=== PATIENT | female | born 1950 | race Caucasian/White ===

== ENCOUNTER 2021-02-17 17:05 | Inpatient (IN) ==
[2021-02-17] MEDS ORDERED: ONDANSETRON 4 MG/2 ML VIAL IV PRN ×2 (17:23→21:37)
[2021-02-17] MEDS ORDERED: LACTATED RINGERS 1,000 ML IV ONE (17:23)
[2021-02-17] MEDS: HYDROmorphone 0.5 MG/0.5 ML SYRINGE IV PRN ×2 (17:44→18:19)
--- NOTE | 2021-02-17 18:08 | XRay Report ---
INDICATION: FALL TECHNIQUE: AP supine chest x-ray COMPARISON: None FINDINGS:Poor quality examination due to patient obesity and supine position Lungs:Lungs are negative. No focal pulmonary parenchymal infiltrate or mass Heart, vascular:No significant cardiomegaly. Pulmonary vascularity is normal. No pulmonary edema or pulmonary congestion Mediastinum, kymberly:No mediastinal widening. No hilar mass Pleura:No pleural fluid. No pleural-based mass or calcification Skeletal:Negative. IMPRESSION: 1. No acute or focal infiltrate 2. No interval change Interpreted and Authenticated by: Elvis Britt 02/17/21
--- NOTE | 2021-02-17 18:10 | XRay Report ---
INDICATION: FALL TECHNIQUE: AP pelvis. Crosstable lateral left hip COMPARISON: Previous examination dated 09/25/2005 FINDINGS: Intertrochanteric left hip fracture with displacement and varus angulation deformity Pelvis is negative. No fracture. No lytic lesion. Sacrum is not well visualized. IMPRESSION: Displaced and angulated left intertrochanteric hip fracture Interpreted and Authenticated by: Elvis Britt 02/17/21
[2021-02-17 18:16] LABS: Basophils # (Auto) 0.02 K/mcL (0.00-0.20); Basophils % (Auto) 0.2 % (0.0-2.0); Eosinophils # (Auto) 0.01 K/mcL (0.00-0.70); Eosinophils % (Auto) 0.1 % (0.0-7.0); Hematocrit 43.8 % (36.0-48.0); Hemoglobin 14.6 g/dL (12.0-15.0); Lymphocytes # (Auto) 0.67 K/mcL (1.50-4.80); Lymphocytes % (Auto) 7.2 % (15.0-49.0); Mean Cell Volume 91.6 fL (80.0-100.0); Mean Corpuscular HGB Conc 33.3 g/dL (31.0-36.0); Mean Platelet Volume 10.3 fL (7.4-10.4); Monocytes # (Auto) 0.51 K/mcL (0.10-0.90); Monocytes % (Auto) 5.5 % (1.0-12.0); Platelet Count 244 K/mcL (140-440); RBC 4.78 M/mcL (4.00-5.20); Red Cell Distribution Width 13.3 % (11.5-14.5); WBC 9.3 K/mcL (4.5-11.0)
[2021-02-17 18:29] LABS: Partial Thromboplastin Time 23.3 sec (20.0-37.0)
[2021-02-17 18:30] LABS: INR 0.9 (0.9-1.1); Prothrombin Time 12.1 sec (11.9-14.5)
[2021-02-17 18:38] LABS: ALT/SGPT 17 U/L (<40); AST/SGOT 16 U/L (<32); Albumin 4.4 gm/dL (3.2-5.2); Albumin/Globulin Ratio 1.5 (1.0-2.3); Alkaline Phosphatase 98 U/L (39-117); Bilirubin,Total 0.4 mg/dL (0.1-1.0); Blood Urea Nitrogen 28 mg/dL (8-23); Calcium 10.4 mg/dL (8.6-10.4); Carbon Dioxide 24 mmol/L (22-30); Chloride 102 mmol/L (96-108); Glomerular Filtration Rate 35; Glucose 134 mg/dL (70-105)
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
[2021-02-17 19:19] LABS: Appearance,Urine Clear (Clear); Bilirubin,Urine Negative (Negative); Color,Urine Yellow; Culture Indicated,Urine No; Glucose,Urine (UA) Negative (Negative); Ketones,Urine Negative (Negative); Leukocyte Esterase,Urine Negative /ug (Negative); Mucus,Urine FEW /hpf; Nitrate,Urine Negative (Negative); Protein,Urine >=300 mg/dL mg/dL (Negative); Specific Gravity,Urine >= 1.030 (1.000-1.035); Urine Blood Trace-intact ery/mcL (Negative); Urine RBC 1 /hpf (0-3); Urine Squamous Epithelial Cell 3 /hpf (0-4); Urine WBC 1 /hpf (0-4); Urobilinogen,Urine Normal
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
[2021-02-17] MEDS ORDERED: ACETAMINOPHEN 325 MG TABLET PO PRN (21:37)
[2021-02-17] MEDS ORDERED: SENNOSIDES 1 TABLET PO PRN (21:37)
[2021-02-17] MEDS ORDERED: IPRATROPIUM/ALBUTEROL 3 ML AMPUL.NEB NEB PRN (21:37)
[2021-02-17] MEDS ORDERED: POTASSIUM CHLORIDE 20 MEQ TABLET PO PRN ×2 (21:37)
[2021-02-17] MEDS ORDERED: LABETALOL 5 MG/ML ML IV PRN (21:37)
[2021-02-17] MEDS ORDERED: POLYETHYLENE GLYCOL 3350 17 GM PACKET PO PRN (21:37)
[2021-02-17] MEDS ORDERED: MAGNESIUM SULFATE 2 GM/50 ML BAG IV PRN (21:37)
[2021-02-17] MEDS ORDERED: POTASSIUM CHLORIDE 40 MEQ in DEXTROSE 5% IN WATER 500 ML IV PRN (21:37)
[2021-02-17] MEDS ORDERED: HYDROcodone/APAP 5/325MG TABLET PO PRN (21:37)
[2021-02-17] MEDS ORDERED: NITROGLYCERIN 0.4 MG TAB.SUBL SL PRN (21:51)
[2021-02-17] MEDS: 0.9 % SODIUM CHLORIDE 10 ML SYRINGE IV SCH (21:55)
[2021-02-17] MEDS: morphine 4 MG/ML VIAL IV PRN (21:55)
[2021-02-17] MEDS: DOCUSATE SODIUM 100 MG CAPSULE PO SCH (22:39)
[2021-02-17] MEDS: ATORVASTATIN 40 MG TABLET PO SCH (22:50)
[2021-02-17] MEDS: FAMOTIDINE 20 MG TABLET PO SCH (22:50)
[2021-02-18] MEDS: morphine 4 MG/ML VIAL IV PRN ×2 (04:28→10:31)
[2021-02-18] MEDS: 0.9 % SODIUM CHLORIDE 10 ML SYRINGE IV SCH ×5 (05:57→23:48)
[2021-02-18 06:38] LABS: Basophils # (Auto) 0.03 K/mcL (0.00-0.20); Basophils % (Auto) 0.4 % (0.0-2.0); Eosinophils # (Auto) 0.05 K/mcL (0.00-0.70); Eosinophils % (Auto) 0.6 % (0.0-7.0); Hematocrit 40.3 % (36.0-48.0); Hemoglobin 12.8 g/dL (12.0-15.0); Lymphocytes # (Auto) 1.34 K/mcL (1.50-4.80); Mean Cell Volume 95.3 fL (80.0-100.0); Mean Corpuscular HGB Conc 31.8 g/dL (31.0-36.0); Mean Platelet Volume 10.2 fL (7.4-10.4); Monocytes # (Auto) 0.75 K/mcL (0.10-0.90); Monocytes % (Auto) 9.5 % (1.0-12.0); Neutrophils % (Auto) 72.5 % (38.0-78.0); Platelet Count 227 K/mcL (140-440); RBC 4.23 M/mcL (4.00-5.20); Red Cell Distribution Width 13.8 % (11.5-14.5); WBC 7.9 K/mcL (4.5-11.0)
[2021-02-18] MEDS ORDERED: 0.9 % SODIUM CHLORIDE 1,000 ML IV SCH (07:00)
[2021-02-18 07:07] LABS: ALT/SGPT 12 U/L (<40); AST/SGOT 13 U/L (<32); Albumin 3.6 gm/dL (3.2-5.2); Albumin/Globulin Ratio 1.3 (1.0-2.3); Alkaline Phosphatase 82 U/L (39-117); Bilirubin,Direct < 0.2 mg/dL (0-0.3); Bilirubin,Total 0.5 mg/dL (0.1-1.0); Blood Urea Nitrogen 30 mg/dL (8-23); Calcium 9.4 mg/dL (8.6-10.4); Carbon Dioxide 23 mmol/L (22-30); Chloride 101 mmol/L (96-108); Globulin 2.8 gm/dL (2.2-3.7); Glomerular Filtration Rate 28; Glucose 109 mg/dL (70-105); Lactate Dehydrogenase 179 U/L (135-225); Phosphorous 4.6 mg/dL (2.5-4.5); Triglycerides 197 mg/dL (<150); Uric Acid 6.2 mg/dL (2.5-8.0)
--- NOTE | 2021-02-18 08:02 | Consultation ---
DATE OF CONSULTATION: 02/18/2021 REQUESTING PHYSICIAN: Saurabh Veras MD CONSULTING PHYSICIAN: Allen Hdz MD REASON FOR CONSULTATION: Left hip fracture. HISTORY OF PRESENT ILLNESS: This is a 70-year-old female who lives by herself and yesterday morning fell on the hip. She was unable to bear weight and laid for approximately 12 hours before she was able to get contact to a neighbor to call emergency services. She denies pain anywhere else, denies loss of consciousness. The pain is made worse with movement, better with the immobility. PAST MEDICAL HISTORY: Positive for coronary artery disease, chronic kidney disease, COPD, depression, hypertension, hyperlipidemia, osteoporosis. PAST SURGICAL HISTORY: Finger amputation, arthroscopic knee surgery, hysterectomy, partial right kidney removal, oophorectomy, colonoscopy. MEDICATIONS: Aspirin 81 mg. Alendronate 70 mg every week. Atorvastatin 80 mg. Metoprolol 50 mg. Nitroglycerin as needed. Spironolactone 12.5 mg. Albuterol inhaler as needed. Tylenol with codeine. Fluticasone umeclidinium vilanterol or inhaler. ALLERGIES: No known drug allergies. SOCIAL HISTORY: She is . She is employed as a caregiver. Drinks alcohol a few times a month. FAMILY HISTORY: Positive for cervical cancer in her maternal grandmother, diabetes and colon cancer in an aunt, father of myocardial infarction, uncle with stomach cancer. REVIEW SYSTEMS: Ten-system review is negative except for as HPI. PHYSICAL EXAMINATION: VITAL SIGNS: Yesterday, temperature 97.2, pulse 87, respirations 18, blood pressure 166/72, pulse ox 91%. GENERAL: This morning, she appears her stated age, in no acute distress. She is awake and alert. EXTREMITIES: Bilateral upper extremities and right lower show no obvious evidence of injury and are normal to inspection, range of motion and stability and strength. Left lower extremity does reveal shortening with some rotation. She has limited movement secondary to pain. She is neurovascularly intact distally. HEART: Regular. LUNGS: Clear. DIAGNOSTIC IMAGING: X-rays reviewed, shows a base of neck left hip fracture. IMPRESSION: Left base of neck hip fracture in a 70-year-old female who does have some significant other medical comorbidities. PLAN: The patient has been admitted by the hospitalist and I believe she has been cleared for surgery; we will go ahead and proceed later today with open treatment and internal fixation of the left base of neck hip fracture with intramedullary cecilia fixation using a gamma nail. Risks of surgery discussed and include, but not limited to, bleeding; infection; injury to nerves, blood vessels, other surrounding structures, anesthetic risks; nonunion or malunion of the fracture; failure of hardware fixation; possibility of needing further surgery. She understands these risks and wished to proceed. [email or web address] Job ID: [id number] Doc ID: [id number] Allen Hdz MD
--- NOTE | 2021-02-18 08:09 | Internal Med Progress Note ---
SUBJECTIVE Subjective Patient information: Note initiated : 02/18/21 at 8:05 am Service Date, if different from initiated Date: [] Patient: Allyssa Aviles 70 y/o F admitted on 02/17/21 for fall. Chief Complaint: [] Interval history: History of present illness: Ms. Aviles is a 70 year old F Lives by herself got up the morning to get a drink she says she moved too fast and lost her balance falling her left hip with immediate pain. No loss of consciousness or head injury. Denies chest pain shortness of breath. She was laying for approximately 12 hours and was finally able to call a neighbor called EMS. In the ED she was evaluated found to have a left hip fracture. She was otherwise stable. CK was okay in the ED. Chronic kidney disease was baseline. Chest x-ray urinalysis and EKG unremarkable. 02/18 Slept okay. Pain controlled with pain medication. No overnight event or new complaints. Getting surgery today. Review of Systems: denies headache/fever/chills/nausea/vomiting/chest or abdominal pain/cough/dyspnea/diarrhea. Otherwise see above. Constitutional Vitals: Vital Signs Temp Pulse Resp BP Pulse Ox 98.0 F 78 20 95/62 95 02/18/21 07:28 02/18/21 07:28 02/18/21 07:28 02/18/21 07:28 02/18/21 07:28 Period Temp Pulse Resp BP Sys/Granados Pulse Ox Last 24 Hr 97.2 F-98.5 F 63-99 18-20 95-191/62-110 90-99 Intake and Output 02/17/21 02/18/21 02/18/21 21:59 05:59 13:59 Intake Total 1000 150 Output Total 1400 175 Balance -400 -25 Weight 77.111 kg Intake & Output: Intake & Output 02/17/21 02/18/21 02/18/21 21:59 05:59 13:59 Intake Total 1000 150 Output Total 1400 175 Balance -400 -25 Weight 77.111 kg Intake: IV 1000 Lactated Ringers 1,000 ml @ 1000 Wide Open IV .Q0M ONE Rx#: [id number] Oral 150 Output: Urine Catheter Amount 175 Void Amount 1400 Uretheral (Gonzalez) 1400 Other: Urine Appearance Clear Uretheral (Gonzalez) Clear Urine Color Bright Yellow Uretheral (Gonzalez) Bright Yellow Urine Odor Uretheral (Gonzalez) Normal Exam: General: Alert, Awake, No acute Distress, obese Eyes/N/T: EOMI, Head/Neck: neck supple, CV: RRR, No murmurs, Pulm: Clear b/l, no wheezing/rhonchi/rales Abd: soft, nontender, +BS x4 Ext: no clubbing/cyanosis/edema Neuro: Alert, no focal deficits, moves all extremities, Skin: warm/dry OBJ DATA Labs CBC & Chem 7: 02/18/21 05:43 02/18/21 05:43 Labs: Abnormal Lab Results 02/18/21 02/18/21 02/17/21 05:43 05:43 18:25 Neut % (Auto) Lymph % (Auto) Lymph # (Auto) 1.34 L Absolute Neutrophils BUN 30 H Creatinine 1.8 H Glucose 109 H Phosphorus 4.6 H Myoglobin NT-Pro-B Natriuret Pep Triglycerides 197 H Urine Protein >=300 mg/dl A Urine Occult Blood Trace-intact A Urine Mucus Few A 02/17/21 02/17/21 02/17/21 17:45 17:45 17:45 Neut % (Auto) 87.0 H Lymph % (Auto) 7.2 L Lymph # (Auto) 0.67 L Absolute Neutrophils 8.05 H BUN 28 H Creatinine 1.5 H Glucose 134 H Phosphorus Myoglobin 101 H NT-Pro-B Natriuret Pep 2305.0 H Triglycerides Urine Protein Urine Occult Blood Urine Mucus Meds: Medications Acetaminophen (Acetaminophen 325 Mg Tablet) 650 mg PO Q6HP PRN PRN Reason: PAIN/FEVER > 101 Hydrocodone Bitart/Acetaminophen (Hydrocodone/Apap 5/325mg Tablet) 1 tab PO Q4HP PRN PRN Reason: PAIN LEVEL 3-6 Albuterol/Ipratropium (Ipratropium/Albuterol 3 Ml Ampul.Neb) 3 ml NEB Q4HP PRN PRN Reason: Shortness Of Breath Atorvastatin Calcium (Atorvastatin 40 Mg Tablet) 80 mg PO QHS [facility] Last Admin: 02/17/21 22:50 Dose: 80 mg Documented by: Docusate Sodium (Docusate Sodium 100 Mg Capsule) 100 mg PO BID [facility] Last Admin: 02/17/21 22:39 Dose: Not Given Documented by: Famotidine (Famotidine 20 Mg Tablet) 20 mg PO BID [facility] Last Admin: 02/17/21 22:50 Dose: 20 mg Documented by: Potassium Chloride 40 meq/ (Dextrose) 520 mls @ 130 mls/hr IV UD PRN PRN Reason: Potassium < 3 Magnesium Sulfate (Magnesium Sulfate) 2 gm in 50 mls @ 50 mls/hr IV UD PRN PRN Reason: Magnesium </= 1.6 Sodium Chloride (Sodium Chloride 0.9%) 1,000 mls @ 75 mls/hr IV .[id number] [facility] Stop: 02/18/21 20:19 Last Admin: 02/18/21 05:25 Dose: 75 mls/hr Documented by: Labetalol HCl (Labetalol 5 Mg/Ml Ml) 0 mg IV Q2HP PRN PRN Reason: Hypertension Metoprolol Succinate (Metoprolol Succinate 25 Mg Tab.Xl.24h) 25 mg PO DAILY [facility] Morphine Sulfate (Morphine 4 Mg/Ml Vial) 0 mg IV Q3HP PRN PRN Reason: Pain Last Admin: 02/18/21 04:28 Dose: 2 mg Documented by: Nitroglycerin (Nitroglycerin 0.4 Mg Tab.Subl) 0.4 mg SL Q5M PRN PRN Reason: Chest Pain Ondansetron HCl (Ondansetron 4 Mg/2 Ml Vial) 4 mg IV Q4HP PRN PRN Reason: Nausea And Vomiting Fluticasone- Umeclidin-Vilanter [ Trelegy Ellipta] Inh 1 dose INH DAILY [facility] Polyethylene Glycol (Polyethylene Glycol 3350 17 Gm Packet) 17 gm PO DAILYP PRN PRN Reason: Constipation Potassium Chloride (Potassium Chloride 20 Meq Tablet) 40 meq PO UD PRN PRN Reason: Potssium is 3-3.5 Potassium Chloride (Potassium Chloride 20 Meq Tablet) 40 meq PO UD PRN PRN Reason: Potassium < 3 Scopolamine (Scopolamine 1 Patch Patch) 1 patch TOPICAL PREOP PRN PRN Reason: Nausea And Vomiting Stop: 02/18/21 23:59 Senna (Sennosides 1 Tablet) 2 tab PO DAILYP PRN PRN Reason: Constipation Sodium Chloride (0.9 % Sodium Chloride 10 Ml Syringe) 10 ml IV Q8 [facility] Last Admin: 02/18/21 05:57 Dose: 10 ml Documented by: Spironolactone (Spironolactone 25 Mg Tablet) 12.5 mg PO QDAY ANA LUISA A/P Narrative A/P Narrative: A: *Left hip fracture: *CAD w/stent: on asa/statin/BB *h/o diastolic CHF: on above + aldactone *CKD III-IV: cr @baseline upper 1's *HTN/HLD: *Obesity: *COPD(not on home O2) *Tobacco abuse: *ABIGAIL on cpap: P: -Dr. Hdz for surgery today -Patient at moderate perioperative risk per RCRI given age and comorbidities for intermediate risk surgery -cont BB/Statin, start ASA post-op -pain control -p/ot -monitor i/o, weights, fluid balance - -ppx: SCD, post-op per ortho DNR Time Spent With Patient Time: Total time spent is greater than 50% in coordination of care (as documented) at patient's floor/unit and/or counseling patient: QUALITY VTE Deep Vein Thrombosis/Pulmonary Embolism Present on Admission: No
[2021-02-18] MEDS ORDERED: METOPROLOL SUCCINATE 25 MG TAB.XL.24H PO SCH (09:00)
[2021-02-18] MEDS: METOPROLOL SUCCINATE 25 MG TAB.XL.24H PO SCH (10:34)
[2021-02-18] MEDS: SPIRONOLACTONE 25 MG TABLET PO SCH (10:34)
[2021-02-18] MEDS: FAMOTIDINE 20 MG TABLET PO SCH ×2 (10:34→23:20)
[2021-02-18] MEDS: DOCUSATE SODIUM 100 MG CAPSULE PO SCH ×2 (10:34→23:20)
[2021-02-18] MEDS ORDERED: ceFAZolin 2 GM in DEXTROSE 5% IN WATER 50 ML IV SCH ×2 (11:30→13:15)
[2021-02-18] MEDS ORDERED: SCOPOLAMINE 1 PATCH PATCH TOPICAL PRN (12:00)
[2021-02-18] MEDS ORDERED: TRANEXAMIC ACID 1,000 MG/10 ML VIAL IV ONE (12:13)
[2021-02-18] MEDS ORDERED: KETAMINE 100 MG/ML ML ONE (12:13)
[2021-02-18] MEDS ORDERED: DEXAMETHASONE 10 MG/ML VIAL ONE (12:13)
[2021-02-18] MEDS ORDERED: ROPIVACAINE HCL/PF 30 ML VIAL IJ ONE (12:13)
[2021-02-18] MEDS ORDERED: MIDAZOLAM 2 MG/2 ML VIAL ONE (12:13)
[2021-02-18] MEDS ORDERED: ONDANSETRON 4 MG/2 ML VIAL ONE (12:13)
[2021-02-18] MEDS ORDERED: MAGNESIUM SULFATE 2 GM/50 ML BAG IV ONE (12:13)
[2021-02-18] MEDS ORDERED: LIDOCAINE HCL/PF 100 MG/5 ML SYRINGE IV ONE (12:13)
[2021-02-18] MEDS ORDERED: GLYCOPYRROLATE 0.2 MG/ML VIAL IV ONE (12:13)
--- NOTE | 2021-02-18 12:48 | Internal Med Progress Note ---
SUBJECTIVE Subjective Patient information: Note initiated : 02/18/21 at 12:47 pm Service Date, if different from initiated Date: [] Patient: Allyssa Aviles 70 y/o F admitted on 02/17/21 for fall. Chief Complaint: [] Interval history: History of present illness: Ms. Aviles is a 70 year old F Lives by herself got up the morning to get a drink she says she moved too fast and lost her balance falling her left hip with immediate pain. No loss of consciousness or head injury. Denies chest pain shortness of breath. She was laying for approximately 12 hours and was finally able to call a neighbor called EMS. In the ED she was evaluated found to have a left hip fracture. She was otherwise stable. CK was okay in the ED. Chronic kidney disease was baseline. Chest x-ray urinalysis and EKG unremarkable. 02/18 Slept okay. Pain controlled with pain medication. No overnight event or new complaints. Getting surgery today. Physical exam Head: Atraumatic, normal inspection. Eyes: normal appearance, no scleral icterus. Neck: full ROM Respiratory: no respiratory distress. Cardiovascular: normal rate and rhythm, S1, S2. GI/Abdominal: soft, nontender, no guarding. Extremities: left hip surgical incision covered in clean bandage Neurological: CN II-XII intact, intact motor, intact sensation. Psychiatric: normal mood. Skin: warm, normal color Constitutional Vitals: Vital Signs Temp Pulse Resp BP Pulse Ox 98.0 F 78 20 95/62 95 02/18/21 07:28 02/18/21 07:28 02/18/21 07:28 02/18/21 07:28 02/18/21 07:28 Period Temp Pulse Resp BP Sys/Granados Pulse Ox Last 24 Hr 97.2 F-98.5 F 63-99 18-20 95-191/62-110 90-99 Intake and Output 02/17/21 02/18/21 02/18/21 21:59 05:59 13:59 Intake Total 1000 150 Output Total 1400 175 Balance -400 -25 Weight 77.111 kg Intake & Output: Intake & Output 02/17/21 02/18/21 02/18/21 21:59 05:59 13:59 Intake Total 1000 150 Output Total 1400 175 Balance -400 -25 Weight 77.111 kg Intake: IV 1000 Lactated Ringers 1,000 ml @ 1000 Wide Open IV .Q0M ONE Rx#: [id number] Oral 150 Output: Urine Catheter Amount 175 Void Amount 1400 Uretheral (Gonzalez) 1400 Other: Urine Appearance Clear Uretheral (Gonzalez) Clear Urine Color Bright Yellow Uretheral (Gonzalez) Bright Yellow Urine Odor Uretheral (Gonzalez) Normal Exam: General: Alert, Awake, No acute Distress, obese Eyes/N/T: EOMI, Head/Neck: neck supple, CV: RRR, No murmurs, Pulm: Clear b/l, no wheezing/rhonchi/rales Abd: soft, nontender, +BS x4 Ext: no clubbing/cyanosis/edema Neuro: Alert, no focal deficits, moves all extremities, Skin: warm/dry OBJ DATA Labs CBC & Chem 7: 02/19/21 05:50 02/19/21 05:50 Labs: Abnormal Lab Results 02/18/21 02/18/21 02/17/21 05:43 05:43 18:25 Neut % (Auto) Lymph % (Auto) Lymph # (Auto) 1.34 L Absolute Neutrophils BUN 30 H Creatinine 1.8 H Glucose 109 H Phosphorus 4.6 H Myoglobin NT-Pro-B Natriuret Pep Triglycerides 197 H Urine Protein >=300 mg/dl A Urine Occult Blood Trace-intact A Urine Mucus Few A 02/17/21 02/17/21 02/17/21 17:45 17:45 17:45 Neut % (Auto) 87.0 H Lymph % (Auto) 7.2 L Lymph # (Auto) 0.67 L Absolute Neutrophils 8.05 H BUN 28 H Creatinine 1.5 H Glucose 134 H Phosphorus Myoglobin 101 H NT-Pro-B Natriuret Pep 2305.0 H Triglycerides Urine Protein Urine Occult Blood Urine Mucus Meds: Medications Acetaminophen (Acetaminophen 325 Mg Tablet) 650 mg PO Q6HP PRN PRN Reason: PAIN/FEVER > 101 Hydrocodone Bitart/Acetaminophen (Hydrocodone/Apap 5/325mg Tablet) 1 tab PO Q4HP PRN PRN Reason: PAIN LEVEL 3-6 Albuterol/Ipratropium (Ipratropium/Albuterol 3 Ml Ampul.Neb) 3 ml NEB Q4HP PRN PRN Reason: Shortness Of Breath Atorvastatin Calcium (Atorvastatin 40 Mg Tablet) 80 mg PO QHS [facility] Last Admin: 02/17/21 22:50 Dose: 80 mg Documented by: Docusate Sodium (Docusate Sodium 100 Mg Capsule) 100 mg PO BID [facility] Last Admin: 02/18/21 10:34 Dose: Not Given Documented by: Famotidine (Famotidine 20 Mg Tablet) 20 mg PO BID [facility] Last Admin: 02/18/21 10:34 Dose: Not Given Documented by: Potassium Chloride 40 meq/ (Dextrose) 520 mls @ 130 mls/hr IV UD PRN PRN Reason: Potassium < 3 Magnesium Sulfate (Magnesium Sulfate) 2 gm in 50 mls @ 50 mls/hr IV UD PRN PRN Reason: Magnesium </= 1.6 Sodium Chloride (Sodium Chloride 0.9%) 1,000 mls @ 75 mls/hr IV .[id number] [facility] Stop: 02/18/21 20:19 Last Admin: 02/18/21 05:25 Dose: 75 mls/hr Documented by: Cefazolin Sodium 2 gm/ (Dextrose) 50 mls @ 100 mls/hr IV PREOP [facility]; Protocol Stop: 02/18/21 17:00 Last Admin: 02/18/21 11:55 Dose: 100 mls/hr Documented by: Labetalol HCl (Labetalol 5 Mg/Ml Ml) 0 mg IV Q2HP PRN PRN Reason: Hypertension Metoprolol Succinate (Metoprolol Succinate 25 Mg Tab.Xl.24h) 12.5 mg PO DAILY [facility] Last Admin: 02/18/21 10:34 Dose: Not Given Documented by: Morphine Sulfate (Morphine 4 Mg/Ml Vial) 0 mg IV Q3HP PRN PRN Reason: Pain Last Admin: 02/18/21 10:31 Dose: 2 mg Documented by: Nitroglycerin (Nitroglycerin 0.4 Mg Tab.Subl) 0.4 mg SL Q5M PRN PRN Reason: Chest Pain Ondansetron HCl (Ondansetron 4 Mg/2 Ml Vial) 4 mg IV Q4HP PRN PRN Reason: Nausea And Vomiting Fluticasone- Umeclidin-Vilanter [ Trelegy Ellipta] Inh 1 dose INH DAILY [facility] Polyethylene Glycol (Polyethylene Glycol 3350 17 Gm Packet) 17 gm PO DAILYP PRN PRN Reason: Constipation Potassium Chloride (Potassium Chloride 20 Meq Tablet) 40 meq PO UD PRN PRN Reason: Potssium is 3-3.5 Potassium Chloride (Potassium Chloride 20 Meq Tablet) 40 meq PO UD PRN PRN Reason: Potassium < 3 Scopolamine (Scopolamine 1 Patch Patch) 1 patch TOPICAL PREOP PRN PRN Reason: Nausea And Vomiting Stop: 02/18/21 23:59 Senna (Sennosides 1 Tablet) 2 tab PO DAILYP PRN PRN Reason: Constipation Sodium Chloride (0.9 % Sodium Chloride 10 Ml Syringe) 10 ml IV Q8 [facility] Last Admin: 02/18/21 05:57 Dose: 10 ml Documented by: Spironolactone (Spironolactone 25 Mg Tablet) 12.5 mg PO QDAY [facility] Last Admin: 02/18/21 10:34 Dose: Not Given Documented by: A/P Narrative A/P Narrative: A: *Left hip fracture s/p ORIF w/ gamma nail (02/18) *CAD w/stent: on asa/statin/BB *h/o diastolic CHF: stble *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
[2021-02-18] MEDS ORDERED: IPRATROPIUM/ALBUTEROL 3 ML AMPUL.NEB NEB PRN (13:04)
[2021-02-18] MEDS ORDERED: ONDANSETRON 4 MG/2 ML VIAL IV PRN (13:04)
[2021-02-18] MEDS ORDERED: MEPERIDINE 25 MG/ML VIAL IV PRN (13:04)
[2021-02-18] MEDS ORDERED: METHOCARBAMOL 1,000 MG/10 ML VIAL IV PRN (13:04)
[2021-02-18] MEDS ORDERED: fentaNYL 100 MCG/2 ML VIAL IV PRN (13:04)
[2021-02-18] MEDS ORDERED: ACETAMINOPHEN 1,000 MG/100 ML BAG IV ONE (13:04)
[2021-02-18] MEDS ORDERED: MAGNESIUM HYDROXIDE 30 ML ORAL.SUSP PO PRN (13:05)
[2021-02-18] MEDS ORDERED: BISACODYL 10 MG SUPP.RECT PR PRN (13:05)
[2021-02-18] MEDS ORDERED: POLYETHYLENE GLYCOL 3350 17 GM PACKET PO PRN (13:05)
[2021-02-18] MEDS ORDERED: FLEETS ADULT ENEMA PR PRN (13:05)
[2021-02-18] MEDS ORDERED: KETOROLAC 15 MG/ML VIAL IV PRN (13:05)
[2021-02-18] MEDS ORDERED: BENZOCAINE/MENTHOL 1 LOZENGE PO PRN (13:05)
--- NOTE | 2021-02-18 13:05 | Brief Operative Note ---
Brief Operative Note Date of procedure: 02/18/21 Pre-op diagnosis: Left base of neck intertrochanteric hip fracture Post-op diagnosis: same Procedure: Open treatment internal fixation of left base of neck intertrochanteric hip fracture w gamma nail Grafts/Implants: Yes (short roz gamma nail) Anesthesia: spinal and GLMA Findings: fractured base of neck Complications: none Surgeon: Allen Hdz Impregnator [employer] Products: Speedy Jameson Estimated blood loss (cc): 50 Specimens Removed/Pathology: none sent Condition: stable Disposition: PACU
[2021-02-18] MEDS ORDERED: LACTATED RINGERS 1,000 ML IV SCH (13:15)
--- NOTE | 2021-02-18 14:08 | Operative Note ---
DATE OF OPERATION: 02/18/2021 PREOPERATIVE DIAGNOSIS: Left hip base of neck intertrochanteric fracture. POSTOPERATIVE DIAGNOSIS: Left hip base of neck intertrochanteric fracture. PROCEDURE PERFORMED: Open treatment and internal fixation of the left base of neck intertrochanteric fracture with a short [place] gamma nail. SURGEON: Allen Hdz MD LABOR DELIVERY RN: Hiren Jameson PA-C. This providers expertise and technical skill were required throughout the case. The PA assisted with preoperative coordination, intraoperative retraction, wound closure, and dressing and splint application, as well as postoperative documentation and care coordination. ANESTHESIA: General. DRAINS: None. SPECIMENS: None. COMPLICATIONS: None. ESTIMATED BLOOD LOSS: 50 mL. POSTOPERATIVE CONDITION: Stable. INDICATIONS FOR SURGERY: This is a 70-year-old female who sustained a fall yesterday morning and was unable to bear weight. She laid on the ground for over 12 hours until she was found and was taken to the ER. X-rays showed a base of neck fracture. FINDINGS AT SURGERY: She did have the base of neck intertrochanteric fracture. Post implantation showed hardware in good position and fracture nearly anatomically aligned. PROCEDURE IN DETAIL: The patient had been seen preoperatively. Informed consent had been obtained after discussion of risks and benefits of surgery. Risks including, but not limited to, bleeding; infection; injury to nerves, blood vessels, other surrounding structures, anesthetic risks; nonunion or malunion of the fracture; failure of hardware fixation; possibility of needing further surgery. She understood these risks and wished to proceed. Correct operative site was marked in preoperative holding, and the patient was taken to the operating room and general anesthesia induced. She was carefully positioned on the fracture table and the left lower extremity was placed in some gentle traction with internal rotation. The right lower extremity was flexed and abducted out of the way and carefully padded. Fluoroscopy was brought in to verify good fracture alignment and then the left hip and leg were carefully prepped and draped in normal sterile fashion. Timeout was performed verifying patient name, operative site, and plan. Incision was made to proximal trochanter with a scalpel through skin and subcutaneous tissue. Hemostasis was obtained with Bovie cautery. We continued down through the thick subcutaneous fat layer with Bovie and then incised the IT band in line with the skin incision. Finger palpation was used to identify the tip of the trochanter and then a threaded guide pin was placed on the tip of the trochanter. We then advanced this down to the lesser trochanter. A lateral image was taken to verify we were down the canal. We then used the opening reamer with a tissue protector and then a short gamma nail was passed into the proximal femur. We impacted this down so the lag screw would be central and then a stab incision was made laterally and the sleeve was passed down to bone. We drilled the lateral cortex and then a threaded guide pin was passed up the femoral neck into the head. We placed the central on the AP view and then checked the lateral view. This was placed nicely central on this view as well, so we took the tip of the pin up close to the articular surface and then measured. We then reamed with the step reamer and then opened our lag screw. This was advanced over the pin until it was within a centimeter of the articular surface on both views. There was good lag screw purchase in this bone. We then placed our proximal interlock screws. This was advanced until it would no longer turn. We checked rotation of the lag screw and it was locked, so we backed the locking screw off 1/4 turn to allow sliding compression and then we went ahead and unscrewed the computer technologist off the lag screw. The guide pin was removed. We then placed our sleeve for our static distal interlocking screw. We made a stab incision and then placed this down onto bone. We drilled bicortically, checked with fluoroscopy and then measured our length and the appropriate length screw was placed, getting good bicortical purchase. We removed the jig and then final fluoro images were taken, both AP and lateral, proximal and distal. Once those were taken and saved, we irrigated copiously with IrriSept, after a minute we irrigated copiously with saline. Deep IT band was closed with a #1 Vicryl, 2-0 Monocryl was used for subcutaneous, jorge for skin. Xeroform and sterile dressing were applied. The patient was then awakened, extubated, and transferred to recovery in stable condition. BISI:yeyo Job ID: [id number] Doc ID: [id number] Allen Hdz MD
[2021-02-18] MEDS: 0.9 % SODIUM CHLORIDE 1,000 ML IV SCH ×2 (14:34→23:54)
--- NOTE | 2021-02-18 15:27 | XRay Report ---
INDICATION: gamma nail left. Left hip fracture TECHNIQUE: 0.5 minutes intraoperative fluoroscopy utilized by Dr. Hdz. Intraoperative spot films obtained. Reduction and internal fixation of left intertrochanteric hip fracture. Compression screw and nail with gamma nail configuration utilized. IMPRESSION: Intraoperative fluoroscopy and spot films. Open reduction and internal fixation of left intertrochanteric hip fracture Interpreted and Authenticated by: Elvis Britt 02/18/21
[2021-02-18] MEDS ORDERED: WARFARIN 5 MG TABLET PO ONE (16:00)
[2021-02-18] MEDS: ceFAZolin 1 GM VIAL IV SCH (18:58)
[2021-02-18] MEDS ORDERED: DOCUSATE SODIUM 100 MG CAPSULE PO SCH (21:00)
[2021-02-18] MEDS: oxyCODONE/APAP 5/325MG TABLET PO PRN (23:14)
[2021-02-18] MEDS: ATORVASTATIN 40 MG TABLET PO SCH (23:20)
[2021-02-18] MEDS: SENNOSIDES 1 TABLET PO SCH (23:21)
[2021-02-19] MEDS: ceFAZolin 1 GM VIAL IV SCH (03:58)
[2021-02-19] MEDS: 0.9 % SODIUM CHLORIDE 10 ML SYRINGE IV SCH ×3 (03:59→22:02)
[2021-02-19 07:20] LABS: Basophils # (Auto) 0.01 K/mcL (0.00-0.20); Basophils % (Auto) 0.1 % (0.0-2.0); Eosinophils # (Auto) 0 K/mcL (0.00-0.70); Eosinophils % (Auto) 0 % (0.0-7.0); Hematocrit 34.9 % (36.0-48.0); Hemoglobin 11.3 g/dL (12.0-15.0); Lymphocytes # (Auto) 0.59 K/mcL (1.50-4.80); Lymphocytes % (Auto) 6.8 % (15.0-49.0); Mean Cell Volume 95.1 fL (80.0-100.0); Mean Corpuscular HGB Conc 32.4 g/dL (31.0-36.0); Monocytes # (Auto) 0.63 K/mcL (0.10-0.90); Monocytes % (Auto) 7.2 % (1.0-12.0); Neutrophils % (Auto) 85.9 % (38.0-78.0); Platelet Count 201 K/mcL (140-440); RBC 3.67 M/mcL (4.00-5.20); Red Cell Distribution Width 13.5 % (11.5-14.5); WBC 8.7 K/mcL (4.5-11.0)
--- NOTE | 2021-02-19 07:28 | Orthopedic Progress Note ---
SUBJECTIVE Subjective Patient information: Note initiated : 02/19/21 at 7:24 am Service Date, if different from initiated Date: [] Patient: Allyssa Aviles 70 y/o F admitted on 02/17/21 for fall. Chief Complaint: Mild pain, difficulty walking. Constitutional Vitals: Vital Signs Temp Pulse Resp BP Pulse Ox 98.1 F 69 20 139/78 95 02/19/21 04:00 02/19/21 04:00 02/19/21 04:00 02/19/21 04:00 02/19/21 04:00 Period Temp Pulse Resp BP Sys/Granados Pulse Ox Last 24 Hr 96.9 F-98.6 F 48-105 12-22 95-159/62-114 87-100 Intake and Output 02/18/21 02/19/21 02/19/21 21:59 05:59 13:59 Intake Total 700 2033 Output Total 500 850 Balance 200 1183 Weight 174 lb 3.2 oz Bandages C/D/I NVI-Distal Intake & Output: Intake & Output 02/18/21 02/19/21 02/19/21 21:59 05:59 13:59 Intake Total 700 2033 Output Total 500 850 Balance 200 1183 Weight 174 lb 3.2 oz Intake: IV 100 933 Sodium Chloride 0.9% 1,000 ml @ 933 100 mls/hr IV .Q10H [facility] Rx#: [id number] Oral 600 1100 Output: Urine Catheter Amount 850 Void Amount 500 Other: Meal Dinner Percent of Meal Consumed 50% Feeding Ability Assist with Tray Set Up Urine Appearance Clear Clear Uretheral (Gonzalez) Clear Urine Color Straw Bright Yellow Uretheral (Gonzalez) Straw Urine Odor Normal OBJ DATA Labs CBC & Chem 7: 02/19/21 05:50 02/18/21 05:43 Labs: Abnormal Lab Results 02/19/21 02/18/21 02/18/21 05:50 05:43 05:43 RBC 3.67 L Hgb 11.3 L Hct 34.9 L MPV 11.0 H Neut % (Auto) 85.9 H Lymph % (Auto) 6.8 L Lymph # (Auto) 0.59 L 1.34 L Absolute Neutrophils BUN 30 H Creatinine 1.8 H Glucose 109 H Phosphorus 4.6 H Myoglobin NT-Pro-B Natriuret Pep Triglycerides 197 H Urine Protein Urine Occult Blood Urine Mucus 02/17/21 02/17/21 02/17/21 18:25 17:45 17:45 RBC Hgb Hct MPV Neut % (Auto) Lymph % (Auto) Lymph # (Auto) Absolute Neutrophils BUN 28 H Creatinine 1.5 H Glucose 134 H Phosphorus Myoglobin 101 H NT-Pro-B Natriuret Pep 2305.0 H Triglycerides Urine Protein >=300 mg/dl A Urine Occult Blood Trace-intact A Urine Mucus Few A 02/17/21 17:45 RBC Hgb Hct MPV Neut % (Auto) 87.0 H Lymph % (Auto) 7.2 L Lymph # (Auto) 0.67 L Absolute Neutrophils 8.05 H BUN Creatinine Glucose Phosphorus Myoglobin NT-Pro-B Natriuret Pep Triglycerides Urine Protein Urine Occult Blood Urine Mucus Meds: Medications Acetaminophen (Acetaminophen 325 Mg Tablet) 650 mg PO Q6HP PRN PRN Reason: PAIN/FEVER > 101 Hydrocodone Bitart/Acetaminophen (Hydrocodone/Apap 5/325mg Tablet) 1 tab PO Q4HP PRN PRN Reason: PAIN LEVEL 3-6 Albuterol/Ipratropium (Ipratropium/Albuterol 3 Ml Ampul.Neb) 3 ml NEB Q4HP PRN PRN Reason: Shortness Of Breath Atorvastatin Calcium (Atorvastatin 40 Mg Tablet) 80 mg PO QHS [facility] Last Admin: 02/18/21 23:20 Dose: 80 mg Documented by: Bisacodyl (Bisacodyl 10 Mg Supp.Rect) 10 mg HI Q2-3DAYS PRN PRN Reason: Constipation Docusate Sodium (Docusate Sodium 100 Mg Capsule) 100 mg PO BID [facility] Last Admin: 02/18/21 23:20 Dose: 100 mg Documented by: Famotidine (Famotidine 20 Mg Tablet) 20 mg PO BID [facility] Last Admin: 02/18/21 23:20 Dose: 20 mg Documented by: Potassium Chloride 40 meq/ (Dextrose) 520 mls @ 130 mls/hr IV UD PRN PRN Reason: Potassium < 3 Magnesium Sulfate (Magnesium Sulfate) 2 gm in 50 mls @ 50 mls/hr IV UD PRN PRN Reason: Magnesium </= 1.6 Sodium Chloride (Sodium Chloride 0.9%) 1,000 mls @ 100 mls/hr IV .Q10H [facility] Last Infusion: 02/18/21 23:54 Dose: Infused Documented by: Ketorolac Tromethamine (Ketorolac 15 Mg/Ml Vial) 15 mg IV Q6HP PRN; Protocol PRN Reason: Per Pain Protocol Stop: 02/20/21 13:08 Labetalol HCl (Labetalol 5 Mg/Ml Ml) 0 mg IV Q2HP PRN PRN Reason: Hypertension Magnesium Hydroxide (Magnesium Hydroxide 30 Ml Oral.Susp) 30 ml PO BIDP PRN PRN Reason: Constipation Metoprolol Succinate (Metoprolol Succinate 25 Mg Tab.Xl.24h) 12.5 mg PO DAILY [facility] Last Admin: 02/18/21 10:34 Dose: Not Given Documented by: Morphine Sulfate (Morphine 4 Mg/Ml Vial) 0 mg IV Q3HP PRN PRN Reason: Pain Last Admin: 02/18/21 10:31 Dose: 2 mg Documented by: Nitroglycerin (Nitroglycerin 0.4 Mg Tab.Subl) 0.4 mg SL Q5M PRN PRN Reason: Chest Pain Ondansetron HCl (Ondansetron 4 Mg/2 Ml Vial) 4 mg IV Q4HP PRN PRN Reason: Nausea And Vomiting Oxycodone/Acetaminophen (Oxycodone/Apap 5/325mg Tablet) 0 tab PO Q4HP PRN; Protocol PRN Reason: Per Pain Protocol Last Admin: 02/18/21 23:14 Dose: 1 tab Documented by: Fluticasone- Umeclidin-Vilanter [ Trelegy Ellipta] Inh 1 dose INH DAILY [facility] Last Admin: 02/18/21 13:16 Dose: Not Given Documented by: Polyethylene Glycol (Polyethylene Glycol 3350 17 Gm Packet) 17 gm PO DAILYP PRN PRN Reason: Constipation Potassium Chloride (Potassium Chloride 20 Meq Tablet) 40 meq PO UD PRN PRN Reason: Potssium is 3-3.5 Potassium Chloride (Potassium Chloride 20 Meq Tablet) 40 meq PO UD PRN PRN Reason: Potassium < 3 Senna (Sennosides 1 Tablet) 2 tab PO HS [facility] Last Admin: 02/18/21 23:21 Dose: Not Given Documented by: Sodium Biphosphate/Sodium Phosphate (Fleets Adult Enema) 1 dose HI Q3-4DAYS PRN PRN Reason: Constipation Sodium Chloride (0.9 % Sodium Chloride 10 Ml Syringe) 10 ml IV Q8 [facility] Last Admin: 02/19/21 03:59 Dose: 10 ml Documented by: Spironolactone (Spironolactone 25 Mg Tablet) 12.5 mg PO QDAY [facility] Last Admin: 02/18/21 10:34 Dose: Not Given Documented by: Throat Lozenges (Benzocaine/Menthol 1 Lozenge) 1 lozenge PO PRN PRN PRN Reason: Sore Throat Warfarin Sodium (Warfarin Per Pharmacy) 1 order PO UD [facility] A/P Assessment and plan (1) Closed fracture of proximal end of left femur: Status: Acute Comment: Mobilize with PT. Discharge 1-2 days per hospitalist. Qualifiers: Encounter type: initial encounter Qualified Code(s): S72.002A - Fracture of unspecified part of neck of left femur, initial encounter for closed fracture Time Spent With Patient Time: Total time spent is greater than 50% in coordination of care (as documented) at patient's floor/unit and/or counseling patient:
[2021-02-19 07:30] LABS: Prothrombin Time 13.5 sec (11.9-14.5)
[2021-02-19 07:37] LABS: Blood Urea Nitrogen 30 mg/dL (8-23); Calcium 8.7 mg/dL (8.6-10.4); Carbon Dioxide 23 mmol/L (22-30); Chloride 101 mmol/L (96-108); Glomerular Filtration Rate 25; Glucose 124 mg/dL (70-105)
[2021-02-19] MEDS: SPIRONOLACTONE 25 MG TABLET PO SCH (10:09)
[2021-02-19] MEDS: FAMOTIDINE 20 MG TABLET PO SCH ×2 (10:09→21:59)
[2021-02-19] MEDS: METOPROLOL SUCCINATE 25 MG TAB.XL.24H PO SCH (10:12)
[2021-02-19] MEDS: DOCUSATE SODIUM 100 MG CAPSULE PO SCH ×2 (10:13→21:59)
[2021-02-19] MEDS: oxyCODONE/APAP 5/325MG TABLET PO PRN (10:13)
[2021-02-19] MEDS: 0.9 % SODIUM CHLORIDE 1,000 ML IV SCH ×2 (10:15→19:36)
[2021-02-19] MEDS ORDERED: ACETAMINOPHEN W/CODEINE #3 1 TABLET PO PRN ×2 (11:21→11:23)
[2021-02-19] MEDS: CYCLOBENZAPRINE 10 MG TABLET PO PRN ×2 (12:11→20:16)
[2021-02-19] MEDS ORDERED: WARFARIN 5 MG TABLET PO ONE (14:00)
[2021-02-19] MEDS: ATORVASTATIN 40 MG TABLET PO SCH (21:59)
[2021-02-19] MEDS: SENNOSIDES 1 TABLET PO SCH (21:59)
[2021-02-20] MEDS: 0.9 % SODIUM CHLORIDE 10 ML SYRINGE IV SCH ×2 (06:25→13:31)
[2021-02-20 06:49] LABS: INR 1.1 (0.9-1.1); Prothrombin Time 15.2 sec (11.9-14.5)
--- NOTE | 2021-02-20 07:51 | Discharge Summary ---
Discharge Provider Provider Patient information: Note initiated : 02/20/21 at 7:47 am Service Date, if different from initiated Date: [] Patient: Allyssa Aviles 70 y/o F admitted on 02/17/21 for fall. Chief Complaint: [] Date of admission: 02/17/21 21:17 Discharge date: 02/20/21 Primary care physician: ZONIA Sweeney Consults: 02/17/21 Consult to Physician [CONS] Stat Comment: Consulting Provider: Allen Hdz Reason For Exam: Physician to Consult Consult to Physician [CONS] Stat Comment: Consulting Provider: David Veras Reason For Exam: Physician to Consult 02/18/21 16:11 Consult to Physician [CONS] Routine Comment: SNF referral Consulting Provider: [facility] Reason For Exam: Physician to Consult COURSE Hospital Course Hospital course: Admitted by hospitalist. Underwent L hip ORIF Discharge diagnosis: L hip intertroch fx Time Spent with Patient Time attestation: Total time spent providing and/or coordinating discharge services: Discharge Plan Patient/Caregiver Discharge Instructions Prescriptions: New hydrocodone-acetaminophen 5-325 mg tablet 1 tab PO Q4H PRN (Reason: pain) Qty: 60 RF: 0 Discontinued acetaminophen-codeine 300-15 mg tablet 1 tab PO Q4H PRN (Reason: pain) Qty: 30 RF: 0 No Action albuterol sulfate [ProAir HFA] 90 mcg/actuation HFA aerosol inhaler 2 puff INHALATION QID PRN (Reason: shortness of breath or wheezing) Qty: 18 RF: 3 (DME) FreeStyle Lite Strips Strip See Rx Instructions .ROUTE .MEDSUPPLY Qty: 10 RF: 0 aspirin 81 mg tablet,delayed release (DR/EC) 81 mg PO QDAY RF: 0 atorvastatin 80 mg tablet 80 mg PO QHS Qty: 90 RF: 3 alendronate 70 mg tablet 70 mg PO QWEEK Qty: 14 RF: 3 metoprolol succinate 50 mg tablet extended release 24 hr 25 mg PO QDAY Qty: 90 RF: 3 nitroglycerin 0.4 mg tablet, sublingual 0.4 mg SUBLINGUAL Q5-15MIN PRN (Reason: chest pain) Qty: 20 RF: 3 spironolactone 25 mg tablet 12.5 mg PO QDAY Qty: 90 RF: 3 Trelegy Ellipta 100-62.5-25 mcg Blister With Device 1 ea INHALATION DAILY RF: 0 Other Ambulatory Orders: Physical Therapy Discharge Order (Routine) Location: None Selected Ordered By: Speedy Martinez (ONCE) Location: None Selected Ordered By: Speedy Jameson Follow Up Plan Follow up with: Allen Hdz MD [Physician] - Shona Clark ARNP [Primary Care Provider] - Speedy Jameson PA-C [Physician Felt Coverer] - Patient Disposition: Xfer SNF Prognosis: Fair Discharge Orders: Discharge Order (Routine); Ordered 02/20/21 Ordered By: Speedy Jameson Pending Pending Pending: Resuscitation Status Do Not Resuscitate Diet Regular Diet Start TueFeb 18 130 Atorvastatin Calcium (Atorvastatin 40 Mg Tablet) 80 mg PO QHS [facility] Last Admin: 02/19/21 21:59 Dose: 80 mg Documented by: Admin: 02/18/21 23:20 Dose: 80 mg Documented by: Admin: 02/17/21 22:50 Dose: 80 mg Documented by: JON Cosigned by: CHATO Cyclobenzaprine HCl (Cyclobenzaprine 10 Mg Tablet) 5 mg PO BIDP PRN PRN Reason: Muscle Spasm Last Admin: 02/19/21 20:16 Dose: 5 mg Documented by: Admin: 02/19/21 12:11 Dose: 5 mg Documented by: EUN Docusate Sodium (Docusate Sodium 100 Mg Capsule) 100 mg PO BID [facility] Last Admin: 02/19/21 21:59 Dose: Not Given Documented by: Admin: 02/19/21 10:13 Dose: Not Given Documented by: Admin: 02/18/21 23:20 Dose: 100 mg Documented by: Admin: 02/18/21 10:34 Dose: Not Given Documented by: Admin: 02/17/21 22:39 Dose: Not Given Documented by: CHATO Famotidine (Famotidine 20 Mg Tablet) 20 mg PO BID [facility] Last Admin: 02/19/21 21:59 Dose: 20 mg Documented by: Admin: 02/19/21 10:09 Dose: 20 mg Documented by: Admin: 02/18/21 23:20 Dose: 20 mg Documented by: Admin: 02/18/21 10:34 Dose: Not Given Documented by: Admin: 02/17/21 22:50 Dose: 20 mg Documented by: JON Cosigned by: CHATO Metoprolol Succinate (Metoprolol Succinate 25 Mg Tab.Xl.24h) 12.5 mg PO DAILY [facility] Last Admin: 02/19/21 10:12 Dose: 12.5 mg Documented by: Admin: 02/18/21 10:34 Dose: Not Given Documented by: EUN Morphine Sulfate (Morphine 4 Mg/Ml Vial) 0 mg IV Q3HP PRN PRN Reason: Pain Last Admin: 02/18/21 10:31 Dose: 2 mg Documented by: Admin: 02/18/21 04:28 Dose: 2 mg Documented by: Admin: 02/17/21 21:55 Dose: 2 mg Documented by: CHATO Fluticasone- Umeclidin-Vilanter [ Trelegy Ellipta] Inh 1 dose INH DAILY [facility] Last Admin: 02/19/21 16:13 Dose: Not Given Documented by: Admin: 02/18/21 13:16 Dose: Not Given Documented by: EUN Senna (Sennosides 1 Tablet) 2 tab PO HS [facility] Last Admin: 02/19/21 21:59 Dose: Not Given Documented by: Admin: 02/18/21 23:21 Dose: Not Given Documented by: CHATO Sodium Chloride (0.9 % Sodium Chloride 10 Ml Syringe) 10 ml IV Q8 [facility] Last Admin: 02/20/21 06:25 Dose: 10 ml Documented by: Admin: 02/19/21 22:02 Dose: 10 ml Documented by: Admin: 02/19/21 14:29 Dose: 10 ml Documented by: Admin: 02/19/21 03:59 Dose: 10 ml Documented by: Admin: 02/18/21 23:21 Dose: Not Given Documented by: Admin: 02/18/21 15:45 Dose: Not Given Documented by: Admin: 02/18/21 05:57 Dose: 10 ml Documented by: Admin: 02/17/21 21:55 Dose: 10 ml Documented by: CHATO Shift Summary 02/20/21 04:22 Shift Summary by Isai Rodríguez Diagnosis: Left Hip Fracture Brief history of present illness: Pt fell at home after moving too fast and remained on floor for 12hrs. Pt had Left hip surgery 02/18 to repair fracture. Orientation: A/Ox4. Slept well this shift. Oxygen/Airway needs: 1.5L O2. Has sleep apnea; wears CPAP at home. Has home Trelegy inhaler in [place]. Ambulation status: Weight bearing status As Tolerated. Left leg is extremely weak. Pt attempted to ambulate but was only able to walk a few steps d/t being unable to lift her left leg. Up with FWW, GB and x1 assist. Voiding: Gonzalez catheter in place. No BM this shift. IV access: IV LFA SL Pain: Administered Flexeril x1 this shift for left hip pain @2014. Wounds: Surgical incision to left hip; medipore in place, CDI. Has dry/crack skin to heel of right foot. Discharge plans: Expected to D/C to [facility]. Date TBD Additional Comments: VSS on RA. Initialized on 02/20/21 04:22 - END OF NOTE
--- NOTE | 2021-02-20 07:54 | Orthopedic Progress Note ---
SUBJECTIVE Subjective Patient information: Note initiated : 02/20/21 at 7:51 am Service Date, if different from initiated Date: [] Patient: Allyssa Aviles 70 y/o F admitted on 02/17/21 for fall. Chief Complaint: [] Constitutional Vitals: Vital Signs Temp Pulse Resp BP Pulse Ox 98.9 F 59 L 17 133/82 90 02/20/21 06:45 02/20/21 06:45 02/20/21 06:45 02/20/21 06:45 02/20/21 06:45 Period Temp Pulse Resp BP Sys/Granados Pulse Ox Last 24 Hr 97.8 F-98.9 F 6-76 17-20 116-144/66-84 90-96 Intake and Output 02/19/21 02/20/21 02/20/21 21:59 05:59 13:59 Intake Total 500 480 Output Total 1100 1150 Balance -600 -670 Weight 174 lb 8 oz bandages c/d/i nvi-distal Intake & Output: Intake & Output 02/19/21 02/20/21 02/20/21 21:59 05:59 13:59 Intake Total 500 480 Output Total 1100 1150 Balance -600 -670 Weight 174 lb 8 oz Intake: Oral 500 480 Output: Urine Catheter Amount 1150 Void Amount 1100 Other: Urine Appearance Clear Clear Uretheral (Gonzalez) Clear Urine Color Straw Bright Yellow Uretheral (Gonzalez) Bright Yellow Urine Odor Normal Normal OBJ DATA Labs CBC & Chem 7: 02/19/21 05:50 02/19/21 05:50 Labs: Abnormal Lab Results 02/20/21 02/19/21 02/19/21 05:10 05:50 05:50 RBC 3.67 L Hgb 11.3 L Hct 34.9 L MPV 11.0 H Neut % (Auto) 85.9 H Lymph % (Auto) 6.8 L Lymph # (Auto) 0.59 L Absolute Neutrophils PT 15.2 H Sodium 130 L Anion Gap 6.0 L BUN 30 H Creatinine 2.0 H Glucose 124 H Phosphorus Myoglobin NT-Pro-B Natriuret Pep Triglycerides Urine Protein Urine Occult Blood Urine Mucus 02/18/21 02/18/21 02/17/21 05:43 05:43 18:25 RBC Hgb Hct MPV Neut % (Auto) Lymph % (Auto) Lymph # (Auto) 1.34 L Absolute Neutrophils PT Sodium Anion Gap BUN 30 H Creatinine 1.8 H Glucose 109 H Phosphorus 4.6 H Myoglobin NT-Pro-B Natriuret Pep Triglycerides 197 H Urine Protein >=300 mg/dl A Urine Occult Blood Trace-intact A Urine Mucus Few A 02/17/21 02/17/21 02/17/21 17:45 17:45 17:45 RBC Hgb Hct MPV Neut % (Auto) 87.0 H Lymph % (Auto) 7.2 L Lymph # (Auto) 0.67 L Absolute Neutrophils 8.05 H PT Sodium Anion Gap BUN 28 H Creatinine 1.5 H Glucose 134 H Phosphorus Myoglobin 101 H NT-Pro-B Natriuret Pep 2305.0 H Triglycerides Urine Protein Urine Occult Blood Urine Mucus Meds: Medications Acetaminophen (Acetaminophen 325 Mg Tablet) 650 mg PO Q6HP PRN PRN Reason: PAIN/FEVER > 101 Acetaminophen/Codeine Phosphate (Acetaminophen W/Codeine #3 1 Tablet) 1 tab PO Q6HP PRN; Protocol PRN Reason: Per Pain Protocol Hydrocodone Bitart/Acetaminophen (Hydrocodone/Apap 5/325mg Tablet) 1 tab PO Q4HP PRN PRN Reason: PAIN LEVEL 3-6 Albuterol/Ipratropium (Ipratropium/Albuterol 3 Ml Ampul.Neb) 3 ml NEB Q4HP PRN PRN Reason: Shortness Of Breath Atorvastatin Calcium (Atorvastatin 40 Mg Tablet) 80 mg PO QHS [facility] Last Admin: 02/19/21 21:59 Dose: 80 mg Documented by: Bisacodyl (Bisacodyl 10 Mg Supp.Rect) [address] Q2-3DAYS PRN PRN Reason: Constipation Cyclobenzaprine HCl (Cyclobenzaprine 10 Mg Tablet) 5 mg PO BIDP PRN PRN Reason: Muscle Spasm Last Admin: 02/19/21 20:16 Dose: 5 mg Documented by: Docusate Sodium (Docusate Sodium 100 Mg Capsule) 100 mg PO BID [facility] Last Admin: 02/19/21 21:59 Dose: Not Given Documented by: Famotidine (Famotidine 20 Mg Tablet) 20 mg PO BID [facility] Last Admin: 02/19/21 21:59 Dose: 20 mg Documented by: Potassium Chloride 40 meq/ (Dextrose) 520 mls @ 130 mls/hr IV UD PRN PRN Reason: Potassium < 3 Magnesium Sulfate (Magnesium Sulfate) 2 gm in 50 mls @ 50 mls/hr IV UD PRN PRN Reason: Magnesium </= 1.6 Ketorolac Tromethamine (Ketorolac 15 Mg/Ml Vial) 15 mg IV Q6HP PRN; Protocol PRN Reason: Per Pain Protocol Stop: 02/20/21 13:08 Labetalol HCl (Labetalol 5 Mg/Ml Ml) 0 mg IV Q2HP PRN PRN Reason: Hypertension Magnesium Hydroxide (Magnesium Hydroxide 30 Ml Oral.Susp) 30 ml PO BIDP PRN PRN Reason: Constipation Metoprolol Succinate (Metoprolol Succinate 25 Mg Tab.Xl.24h) 12.5 mg PO DAILY [facility] Last Admin: 02/19/21 10:12 Dose: 12.5 mg Documented by: Morphine Sulfate (Morphine 4 Mg/Ml Vial) 0 mg IV Q3HP PRN PRN Reason: Pain Last Admin: 02/18/21 10:31 Dose: 2 mg Documented by: Nitroglycerin (Nitroglycerin 0.4 Mg Tab.Subl) 0.4 mg SL Q5M PRN PRN Reason: Chest Pain Ondansetron HCl (Ondansetron 4 Mg/2 Ml Vial) 4 mg IV Q4HP PRN PRN Reason: Nausea And Vomiting Fluticasone- Umeclidin-Vilanter [ Trelegy Ellipta] Inh 1 dose INH DAILY [facility] Last Admin: 02/19/21 16:13 Dose: Not Given Documented by: Polyethylene Glycol (Polyethylene Glycol 3350 17 Gm Packet) 17 gm PO DAILYP PRN PRN Reason: Constipation Potassium Chloride (Potassium Chloride 20 Meq Tablet) 40 meq PO UD PRN PRN Reason: Potssium is 3-3.5 Potassium Chloride (Potassium Chloride 20 Meq Tablet) 40 meq PO UD PRN PRN Reason: Potassium < 3 Senna (Sennosides 1 Tablet) 2 tab PO HS [facility] Last Admin: 02/19/21 21:59 Dose: Not Given Documented by: Sodium Biphosphate/Sodium Phosphate (Fleets Adult Enema) [address] Q3-4DAYS PRN PRN Reason: Constipation Sodium Chloride (0.9 % Sodium Chloride 10 Ml Syringe) 10 ml IV Q8 [facility] Last Admin: 02/20/21 06:25 Dose: 10 ml Documented by: Throat Lozenges (Benzocaine/Menthol 1 Lozenge) 1 lozenge PO PRN PRN PRN Reason: Sore Throat Warfarin Sodium (Warfarin Per Pharmacy) 1 order PO UD ANA LUISA Warfarin Sodium (Warfarin 7.5 Mg Tablet) 7.5 mg PO ONCE@1400 ONE Stop: 02/20/21 14:01 A/P Assessment and plan (1) Closed fracture of proximal end of left femur: Status: Acute Comment: Mobilize with PT. Discharge per hospitalist. Pain meds per ortho. Cont coumadin for DVT prophylaxis x 30 days. f/u at [facility] in 2 weeks for recheck and staple removal. Qualifiers: Encounter type: initial encounter Qualified Code(s): S72.002A - Fractu re of unspecified part of neck of left femur, initial encounter for closed fracture Time Spent With Patient Time: Total time spent is greater than 50% in coordination of care (as documented) at patient's floor/unit and/or counseling patient:
[2021-02-20] MEDS: DOCUSATE SODIUM 100 MG CAPSULE PO SCH (08:52)
[2021-02-20] MEDS: METOPROLOL SUCCINATE 25 MG TAB.XL.24H PO SCH ×2 (08:52→10:10)
[2021-02-20 08:53] LABS: Basophils # (Auto) 0.03 K/mcL (0.00-0.20); Basophils % (Auto) 0.4 % (0.0-2.0); Eosinophils # (Auto) 0.17 K/mcL (0.00-0.70); Hematocrit 34.9 % (36.0-48.0); Hemoglobin 11.5 g/dL (12.0-15.0); Lymphocytes # (Auto) 1.92 K/mcL (1.50-4.80); Mean Cell Volume 92.8 fL (80.0-100.0); Mean Platelet Volume 10.6 fL (7.4-10.4); Monocytes % (Auto) 9.6 % (1.0-12.0); Platelet Count 213 K/mcL (140-440); RBC 3.76 M/mcL (4.00-5.20); Red Cell Distribution Width 13.8 % (11.5-14.5); WBC 8.3 K/mcL (4.5-11.0)
[2021-02-20] MEDS: FAMOTIDINE 20 MG TABLET PO SCH (08:53)
[2021-02-20 09:15] LABS: ALT/SGPT 5 U/L (<40); AST/SGOT 18 U/L (<32); Albumin 3.3 gm/dL (3.2-5.2); Albumin/Globulin Ratio 1.1 (1.0-2.3); Alkaline Phosphatase 69 U/L (39-117); Bilirubin,Direct < 0.2 mg/dL (0-0.3); Bilirubin,Total 0.3 mg/dL (0.1-1.0); Blood Urea Nitrogen 35 mg/dL (8-23); Calcium 9.1 mg/dL (8.6-10.4); Carbon Dioxide 25 mmol/L (22-30); Chloride 104 mmol/L (96-108); Globulin 2.9 gm/dL (2.2-3.7); Glomerular Filtration Rate 25; Glucose 94 mg/dL (70-105); Lactate Dehydrogenase 195 U/L (135-225); Triglycerides 140 mg/dL (<150)
[2021-02-20] MEDS: CYCLOBENZAPRINE 10 MG TABLET PO PRN (13:14)
[2021-02-20] MEDS ORDERED: WARFARIN 7.5 MG TABLET PO ONE (14:00)
--- NOTE | 2021-02-20 14:02 | Discharge Summary ---
Discharge Provider Provider Patient information: Note initiated : 02/20/21 at 1:53 pm Service Date, if different from initiated Date: [] Patient: Allyssa Aviles 70 y/o F admitted on 02/17/21 for fall. Chief Complaint: [] Date of admission: 02/17/21 21:17 Discharge date: 02/20/21 Primary care physician: ZONIA Sweeney Consults: 02/17/21 Consult to Physician [CONS] Stat Comment: Consulting Provider: Allen Hdz Reason For Exam: Physician to Consult Consult to Physician [CONS] Stat Comment: Consulting Provider: David Veras Reason For Exam: Physician to Consult 02/18/21 16:11 Consult to Physician [CONS] Routine Comment: SNF referral Consulting Provider: [facility] Reason For Exam: Physician to Consult Discharge Meds Discharge Medications Home Medications aspirin 81 mg tablet,delayed release 81 mg PO QDAY tab 10/30/19 [History Confirmed 02/17/21 Last Taken 02/16/21 09:00] blood sugar diagnostic #10 each 01/10/20 [History Confirmed 02/18/21 Last Taken Unknown] alendronate 70 mg tablet 70 mg PO QWEEK #14 tab 07/29/20 [Rx Confirmed 02/17/21 Last Taken 02/15/21 09:00] atorvastatin 80 mg tablet 80 mg PO QHS #90 tab 07/29/20 [Rx Confirmed 02/17/21 Last Taken 02/16/21 09:00] metoprolol succinate 50 mg tablet,extended release 24 hr 25 mg PO QDAY #90 tab 07/29/20 [Rx Confirmed 02/17/21 Last Taken 02/16/21 09:00] nitroglycerin 0.4 mg sublingual tablet 0.4 mg SUBLINGUAL Q5-15MIN PRN #20 tab 07/29/20 [Rx Confirmed 02/17/21 Last Taken Unknown] spironolactone 25 mg tablet 12.5 mg PO QDAY #90 tab 07/29/20 [Rx Confirmed 02/17/21 Last Taken 02/16/21 09:00] albuterol sulfate 90 mcg/actuation aerosol inhaler 2 puff INHALATION QID PRN #18 g 10/07/20 [Rx Confirmed 02/17/21 Last Taken Unknown] Trelegy Ellipta 1 ea INHALATION DAILY 02/17/21 [History Confirmed 02/17/21 Last Taken 02/16/21 09:00] apixaban [Eliquis] 2.5 mg PO BID 30 Days #60 tab 02/20/21 [Rx Last Taken Unknown] hydrocodone-acetaminophen 1 tab PO Q4H PRN #60 tab 02/20/21 [Rx Last Taken Unknown] polyethylene glycol 3350 [Miralax] 17 g PO QDAY #30 ea 02/20/21 [Rx Last Taken Unknown] COURSE Hospital Course Hospital course: Ms. Aviles is a 70 year old female who lives by herself got up the morning to get a drink she says she moved too fast and lost her balance falling her left hip with immediate pain. No loss of consciousness or head injury. Denies chest pain shortness of breath. She was laying for approximately 12 hours and was finally able to call a neighbor called EMS. In the ED she was evaluated found to have a left hip fracture. She was otherwise stable. Chronic kidney disease was baseline. Chest x-ray urinalysis and EKG unremarkable. The patient was admitted for left hip fracture, had an ORIF of the left base of the neck intertrochanteric fracture with short [place] gamma nail. The patient was monitored after surgery, worked with therapies and discharged to a SNF for rehab. DVT prophylaxis was changed to Eliquis 2.5 mg BID for 30 days at discharge. Previously planned for Coumadin but ok with surgery to change to Eliquis. Post hospital follow up; -Rehab at SNF, follow up with orthopedic surgery in clinic. -Monitor blood pressure, had some low BP in hospital but asymptomatic. Discharged on previous Toprol and Spironolactone dose. Discharge diagnosis: Left hip fracture Secondary discharge diagnosis: Chronic kidney disease Time Spent with Patient Time attestation: Total time spent providing and/or coordinating discharge services: EXAM Constitutional Vitals: Temp Pulse Resp BP Pulse Ox 98.2 F 78 20 114/72 94 02/20/21 13:42 02/20/21 13:42 02/20/21 13:42 02/20/21 13:42 02/20/21 13:42 Additional findings Additional findings: Head: Atraumatic, normal inspection. Eyes: normal appearance, no scleral icterus. Neck: full ROM Respiratory: no respiratory distress. Cardiovascular: normal rate and rhythm, S1, S2. GI/Abdominal: soft, nontender, no guarding. Extremities: left hip surgical incision covered with clean bandage Neurological: CN II-XII intact, intact motor, intact sensation. Psychiatric: normal mood. Skin: warm, normal color Discharge Data Data Completed and Pending Labs on day of discharge: Labs from last 24 hours 02/20/21 02/20/21 02/20/21 08:12 08:12 05:10 WBC 8.3 RBC 3.76 L Hgb 11.5 L Hct 34.9 L MCV 92.8 MCH 30.6 MCHC 33.0 RDW 13.8 Plt Count 213 MPV 10.6 H Neut % (Auto) 65.0 Lymph % (Auto) 23.0 [place] % (Auto) 9.6 Eos % (Auto) 2.0 Baso % (Auto) 0.4 Lymph # (Auto) 1.92 [place] # (Auto) 0.80 Eos # (Auto) 0.17 Baso # (Auto) 0.03 Absolute Neutrophils 5.42 PT 15.2 H INR 1.1 Sodium 137 Potassium 4.3 Chloride 104 Carbon Dioxide 25 Anion Gap 8.0 BUN 35 H Creatinine 2.0 H GFR Calculation 25 Glucose 94 Uric Acid 7.0 Calcium 9.1 Phosphorus 3.0 Magnesium 2.0 Total Bilirubin 0.3 Direct Bilirubin < 0.2 GGT 10 AST 18 ALT 5 Alkaline Phosphatase 69 Lactate Dehydrogenase 195 Total Protein 6.2 Albumin 3.3 Globulin 2.9 Albumin/Globulin Ratio 1.1 Triglycerides 140 Discharge Plan Patient/Caregiver Discharge Instructions Activity: as per physical therapy Diet: Low Sodium (2gm) Instructions: ORIF of Hip Fracture (DC) Activity Restrictions/Additional Instructions: Discharge Instructions: Weight bearing as tolerated. Wear comfortable clothing for your physical therapy. You have the silver dressing, leave in place for 14 days then remove. If dressing becomes soiled (turns black), remove and use gauze 4x4 dressing and antimicrobial silver ointment ([id number]) and change daily. You may shower with dressing on, pat dry after shower. You may start showering on post op day #2. To avoid constipation while taking any narcotic pain medication, take an over the counter stool softener/laxative. Use your ice packs as directed. Ice and elevation will help with pain and swelling. If you have any questions or concerns call your orthopedic surgeon before going to the emergency room. [facility] has a contract accountant physician 24 hours per day/7 days per week and can be reached at [phone]. Call for fevers above 100.5 or pain not controlled by medication. Your prescriptions are with your discharge information. Some medications were electronically transmitted to your pharmacy of choice. Take Eliquis as prescribed to prevent blood clots (see medication list). This discharge packet is provided to you to help keep you informed about your care. We want to ensure you get everything you need when you go home. You will also be receiving a call from us in a few days to follow up with you and see how you are doing since your discharge. This gives us a chance to listen to any concerns you maybe experiencing since you were discharged or any additional needs you may have, as well as providing us feedback on your care experience. We strive to always provide excellent care and thank you for your feedback and for choosing [facility]. Prescriptions: New hydrocodone-acetaminophen 5-325 mg tablet 1 tab PO Q4H PRN (Reason: pain) Qty: 60 RF: 0 polyethylene glycol 3350 [Miralax] 17 gram Powder In Packet 17 g PO QDAY Qty: 30 RF: 1 Eliquis 2.5 mg tablet 2.5 mg PO BID 30 Days Qty: 60 RF: 0 Continued albuterol sulfate [ProAir HFA] 90 mcg/actuation HFA aerosol inhaler 2 puff INHALATION QID PRN (Reason: shortness of breath or wheezing) Qty: 18 RF: 3 aspirin 81 mg tablet,delayed release (DR/EC) 81 mg PO QDAY RF: 0 atorvastatin 80 mg tablet 80 mg PO QHS Qty: 90 RF: 3 alendronate 70 mg tablet 70 mg PO QWEEK Qty: 14 RF: 3 metoprolol succinate 50 mg tablet extended release 24 hr 25 mg PO QDAY Qty: 90 RF: 3 nitroglycerin 0.4 mg tablet, sublingual 0.4 mg SUBLINGUAL Q5-15MIN PRN (Reason: chest pain) Qty: 20 RF: 3 spironolactone 25 mg tablet 12.5 mg PO QDAY Qty: 90 RF: 3 Trelegy Ellipta 100-62.5-25 mcg Blister With Device 1 ea INHALATION DAILY RF: 0 Discontinued acetaminophen-codeine 300-15 mg tablet 1 tab PO Q4H PRN (Reason: pain) Qty: 30 RF: 0 No Action (DME) FreeStyle Lite Strips Strip See Rx Instructions .ROUTE .MEDSUPPLY Qty: 10 RF: 0 Other Ambulatory Orders: OT Discharge Order (Routine) Location: None Selected Ordered By: Prateek Sheppard Physical Therapy Discharge Order (Routine) Location: None Selected Ordered By: Speedy Jameson Walker (ONCE) Location: None Selected Ordered By: Speedy Jameson Follow Up Plan Follow up with: Shona Clark ARNP [Primary Care Provider] - (Please call and schedule a hospital follow up appointment.) Speedy Jameson PA-C [Physician Industrial Safety And Health Technician] - (Please call and schedule a surgical post op follow up to be seen in 10-14 days from surgery.) Patient Disposition: Xfer SNF Prognosis: Fair Rehab Potential: Fair I certify that the patient requires SNF services: Yes Overall status at discharge: patient is progressing back to baseline Discharge Orders: Discharge Order (Routine); Ordered 02/20/21 Ordered By: Speedy Jameson QUALITY VTE Deep Vein Thrombosis/Pulmonary Embolism Present on Admission: No
== END 2021-02-20 14:20 | DRG 481 ==
LOC: ED 17:05 → MEDSUR 21:17
PROVIDERS: ADMIT Internal Medicine; ATTEND Internal Medicine